=== PATIENT | male | born 1990 | race Caucasian/White ===

== ENCOUNTER 2023-09-21 13:27 | Outpatient (AMB) | payer OTHER, SELFPAY ==
[2023-09-21 13:34] VITALS: BP 126/82; PULSE 72; O2SAT 99; BMI 29.3
--- NOTE | 2023-09-21 13:34 | A.OFFPC_ITS ---
Vital Signs 09/21/23 13:34 Height 5 ft 5 in Weight 176 lb 0.8 oz BMI 29.3 BP 126/82 Blood Pressure Location Lt brachial Position Sitting Pulse 72 Pulse Source Pulse Oximeter Pulse Oximetry (%) 99 Oxygen Delivery Method Room Air Intake Visit Reasons: NPV/ requesting a phy Placement Manager Required: No Allergies No Known Allergies [No Known Allergies*] Allergy (Verified 09/21/23 13:35) Tobacco use date assessed: 09/21/23 Dental Screening Dental Screen Date: 09/21/23 Did you have a dental visit in the last 12 months?: Yes Did you have a dental problem in the last 6 months where you did not have access to dental care?: No Was dental information given to patient?: Patient has dentist HPI NPV/ requesting a phy HPI Details 32-year-old overweight male 1st time dino ng seen. Review of the notes ER visit March 2021 for left tibial fracture had ORIF left tibial plafond, tibia only with removal ex fix left ankle, sustained February 2021 from wakeboarding had laceration of the right lip and repaired. February 2021 had also penile shaft swelling after sexual intercourse advised prednisone. [facility] Surgical History (Updated 09/21/23 @ 13:51 by Bradley Hawkins MD) S/P ORIF (open reduction internal fixation) fracture Family History (Updated 09/21/23 @ 13:56 by Bradley Hawkins MD) Father Myocardial infarct Cerebral aneurysm Social History (Updated 09/21/23 @ 13:58 by Bradley Hawkins MD) Housing: Apartment Alcohol intake: current Comment: 2-3 x a week 2-3 drinks Patient Tobacco Use Status: Current someday Tobacco user Cigarettes Per Day: 5 service: No Current occupational status: unemployed Cognitive needs: No Hearing needs: No Vision needs: No Questionnaire PHQ-9 Over the last 2 weeks, how often have you been bothered by any of the following problems? 1. Little interest or pleasure in doing things: not at all 2. Feeling down, depressed, or hopeless: not at all 3. Trouble falling or staying asleep, or sleeping too much: not at all 4. Feeling tired or having little energy: not at all 5. Poor appetite or overeating: not at all 6. Feeling bad about yourself - or that you are a failure or have let yourself or your family down: not at all 7. Trouble concentrating on things, such as reading the newspaper or watching television: not at all 8. Moving or speaking so slowly that other people could have noticed. Or the opposite - being so fidgety or restless that you have been moving around a lot more than usual: not at all 9. Thoughts that you would be better off or of hurting yourself in some way: not at all Total score: 0 Depression Screening Interpretation: Negative Depression Screening Done: Yes Source: Developed by Drs. Dutch West, Mary Bullard, Sharan Do and colleagues, with an educational christine from [employer]. Thrive Questionnaire Date Thrive assessed: 09/21/23 AUDIT C Alcohol Use Questionnaire (AUDIT-C) 1. How often do you have a drink containing alcohol?: 2-3 times a week 2. How many drinks containing alcohol do you have on a typical day when you are drinking?: 3 or 4 3. How often do you have six or more drinks on one occasion?: Never Total Score: 4 PHILOMENA-7 AMB Questionnaire PHILOMENA-7 Date PHILOMENA - 7 assessed: 09/21/23 Feeling nervous, anxious, or on edge: 0 = Not at all Not being able to stop or control worryin = Several days Worrying too much about different things: 0 = Not at all Trouble relaxin = Not at all Being so restless that it is hard to sit still: 0 = Not at all Becoming easily annoyed or irritable: 0 = Not at all Feeling afraid as if something awful might happen: 0 = Not at all Total PHILOMENA-7 score (0-4 normal; 5-9 mild; 10-14 moderate; 15-21 severe): 1 Source: Developed by Drs. Dutch West, Mary Bullard, Sharan Do and colleagues, with an educational christine from [employer]. Review of Systems Const Denies poor appetite and Denies weakness Eyes Denies no additional complaints ENT Reports Normal hearing present, Denies dizziness, Denies nasal congestion, Denies tinnitus and Denies sore throat Card Denies chest pain, Denies syncope, Denies rapid heart rate and Denies dyspnea Resp Denies cough and Denies dyspnea GI Denies change in stool character, Reports constipation, Denies diarrhea, Denies nausea and Denies vomiting Denies dysuria and Denies urinary frequency Neuro Reports Normal hearing present, Denies confusion, Denies dizziness, Denies syncope and Denies weakness Psych Denies confusion Physical exam (Primary Care) Vital Signs: Last Vital Signs Pulse 72 09/21/23 13:34 BP 126/82 09/21/23 13:34 Pulse Ox 99 09/21/23 13:34 Oxygen Delivery Method Room Air 09/21/23 13:34 BMI result Body Mass Index 29.3 Tobacco/Smoking Status: Tobacco use Status Tobacco use date assessed 09/21/23 09/21/23 13:35 Patient Tobacco Use Status Current someday Tobacco 09/21/23 13:40 PHQ-9: PHQ-9 Score PHQ-9: Total score 0 09/21/23 13:40 Depression Screening Interpretation: Negative Thrive Assessment: Date of Thrive Assessment Date Thrive assessed 09/21/23 09/21/23 13:35 Const General: No confusion Orientation/consciousness: No confusion HENMT Head: Yes normocephalic Ears: external ears normal and TM's normal bilaterally Face and sinus: Yes normal facial exam Mouth: moist mucous membranes Throat: Yes tonsils normal Eyes Conjunctivae: conjunctivae normal Pupils: Equal, round and reactive pupils present and Pupil accommodation reflex normal Direct Ophthalmoscopy: normal light reflex Neck Neck: No lymphadenopathy Thyroid: Thyroid normal Chest Chest palpation & inspection: normal inspection of the chest Resp Effort & Inspection: normal respiratory effort and no audible wheezes Auscultation: clear to auscultation bilaterally, no crackles, no wheezes and lung sounds not diminished Cardio Rate: regular rate Rhythm: regular rhythm Peripheral pulses: radial pulses present and dorsalis pedis present GI Other: visual negative Palpation (GI): no masses Auscultation: normal bowel sounds and normoactive bowel sounds Rectal Exam - Male: Yes deferred Male General Exam: Yes normal external exam Skin General skin exam: no rashes or lesions noted Rashes: no rashes Neuro General: No confusion Cranial nerves: Yes Equal, round and reactive pupils present and Yes Normal hearing present Cognition (Neuro): normal cognition Gait exam (Neuro): Normal gait present Motor exam (neuro): 5/5 motor strength present throughout Deep tendon reflexes (DTR's): Right brachioradialis reflex intensity grade: 2+, Left brachioradialis reflex intensity grade: 2+, Right patellar reflex intensity grade: 2+ and Left patellar reflex intensity grade: 2+ Extrem General: No edema Assessment and Plan Assessment & Plan (1) Annual physical exam: Code(s): Z00.00 - Encounter for general adult medical examination without abnormal findings (2) Overweight (BMI 25.0-29.9): Code(s): E66.3 - Overweight Plan: Diet and exercise (3) Tobacco abuse: Code(s): Z72.0 - Tobacco use Plan: strongly advised to stop smoking!!! Coding Level of Care Code New Pt Prev Care 18-39yr([id number] Diagnoses Annual physical exam Z00.00 Overweight (BMI 25.0-29.9) E66.3 Tobacco abuse Z72.0
== END 2023-09-21 14:12 | disposition home or self-care (01) ==
PROVIDERS: PCP Internal Medicine; Visit Provider Internal Medicine
DX: Z00.00 Encounter for general adult medical examination without abnormal findings (principal); E66.3 Overweight; Z72.0 Tobacco use
CPT/HCPCS: 99385

== ENCOUNTER 2024-09-26 15:03 | Outpatient (AMB) | payer OTHER, SELFPAY ==
--- NOTE | 2024-09-26 15:15 | A.OFFPC_ITS ---
Vital Signs 09/26/24 15:17 Height 5 ft 5 in Weight 175 lb 2 oz BMI 29.1 BP 120/80 Blood Pressure Location Lt brachial Position Sitting Pulse 70 Pulse Source Pulse Oximeter Temp 97.5 F Temp Source Skin Pulse Oximetry (%) 98 Oxygen Delivery Method Room Air Intake Visit Reasons: annual exam Intake Note: Patient is here today for a physical. Pt decline flu shot today. Patch Press Operator Required: No Warble Saw Operator: Not Required per policy Accompanied by: Self / Same As Patient Allergies No Known Allergies [No Known Allergies*] Allergy (Verified 09/26/24 15:55) Medication List - Last Reconciled 09/26/24 by Celine Krishnamurthy PA-C No Known Home Meds Tobacco use date assessed: 09/26/24 Dental Screening Dental Screen Date: 09/26/24 Did you have a dental visit in the last 12 months?: Yes Did you have a dental problem in the last 6 months where you did not have access to dental care?: No Was dental information given to patient?: Patient has dentist HPI annual exam HPI Details 33-year-old male with past medical histo ry of herpes simplex virus, obesity, tobacco abuse last seen by Dr. Hawkins 08/2023 coming in for annual exam. Tells us today he has been struggling with anxiety and depression counselor and was treated in the past for this concern. He has not tried medication in with some time and is interested in medical management of his anxiety at this time. He also mentions he has a rash on his face that is worse with cold weather and uses lotion on his face with no relief. He has seen Dermatology in the past for this concern and no diagnosis was made [facility] Surgical History S/P ORIF (open reduction internal fixation) fracture Family History Father Myocardial infarct Cerebral aneurysm Social History Housing: Apartment Alcohol intake: current Comment: 2-3 x a week 2-3 drinks Patient Tobacco Use Status: Current someday Tobacco user Tobacco use type: Cigar Cigarettes Per Day: 5 e-Cigarette/Vaping Use: Never Used Second Hand Smoke Exposure: Yes service: No Current occupational status: employed Cognitive needs: No Hearing needs: No Vision needs: No Questionnaire PHQ-9 Over the last 2 weeks, how often have you been bothered by any of the following problems? 1. Little interest or pleasure in doing things: several days 2. Feeling down, depressed, or hopeless: several days 3. Trouble falling or staying asleep, or sleeping too much: several days 4. Feeling tired or having little energy: several days 5. Poor appetite or overeating: several days 6. Feeling bad about yourself - or that you are a failure or have let yourself or your family down: several days 7. Trouble concentrating on things, such as reading the newspaper or watching television: several days 8. Moving or speaking so slowly that other people could have noticed. Or the opposite - being so fidgety or restless that you have been moving around a lot more than usual: several days 9. Thoughts that you would be better off or of hurting yourself in some way: several days Total score: 9 Depression Screening Interpretation: Positive Depression Screening Follow-up: Existing condition and New Medication prescribed Depression Screening Done: Yes Source: Developed by Drs. Dutch West, Mary Bullard, Sharan Do and colleagues, with an educational christine from [employer]. Thrive Questionnaire Date Thrive assessed: 09/26/24 I am a: Patient What is your living situation today?: I have a steady place to live Within the past 12 months, did the food you bought not last and you didn't have the money to get more?: Sometimes True Within the past 12 months, did you worry whether your food would run out before you got money to buy more?: Sometimes True Do you have trouble paying for medicines?: No Do you have trouble getting transportation to medical appointments?: No Do you have trouble paying your heating and electricity bill?: No Do you have trouble taking care of your child, family member or friend?: No Do you have trouble with day-to-day activities such as bathing, preparing meals, shopping, managing finances, etc.?: No Are you currently unemployed and looking for a job?: No Are you interested in more education?: No Please select the resources that you would like help with: None Currently or been in a relationship where the following occur: I choose not to answer THRIVE Score: 2 AUDIT C Alcohol Use Questionnaire (AUDIT-C) 1. How often do you have a drink containing alcohol?: 2-3 times a week 2. How many drinks containing alcohol do you have on a typical day when you are drinking?: 3 or 4 3. How often do you have six or more drinks on one occasion?: Less than monthly Total Score: 5 PHILOMENA-7 AMB Questionnaire PHILOMENA-7 Date PHILOMENA - 7 assessed: 09/26/24 Feeling nervous, anxious, or on edge: 2 = More than half the days Not being able to stop or control worryin = Not at all Worrying too much about different things: 0 = Not at all Trouble relaxin = Several days Being so restless that it is hard to sit still: 1 = Several days Becoming easily annoyed or irritable: 1 = Several days Feeling afraid as if something awful might happen: 1 = Several days Total PHILOMENA-7 score (0-4 normal; 5-9 mild; 10-14 moderate; 15-21 severe): 6 Source: Developed by Drs. Dutch West, Mary Bullard, Sharan Do and colleagues, with an educational christine from [employer]. PHILOMENA-7 Assessment Billing PHILOMENA-7 Assessment Tool: PHILOMENA-7 Assessment 96701 Review of Systems Const Denies body aches, Denies fatigue, Denies fever(s), Denies frequent falls, Denies headache(s) and Denies weakness Eyes Reports no additional complaints and Denies change in vision ENT Denies dysphagia, Denies dizziness, Denies facial pain, Denies headache(s), Denies nasal congestion and Denies odynophagia Card Denies chest pain, Denies syncope, Denies irregular heart rhythm, Denies leg edema, Denies lightheadedness and Denies dyspnea Resp Denies cough and Denies dyspnea GI Denies constipation, Denies dysphagia, Denies dyspepsia, Denies diarrhea, Denies nausea, Denies odynophagia and Denies vomiting Denies dysuria, Denies urinary frequency, Denies urinary hesitancy and Denies urinary urgency Musc Reports back pain and Denies myalgias Skin/Breast Reports system reviewed and no additional complaints, except as documented Neuro Denies dizziness, Denies syncope, Denies frequent falls, Denies headache(s) and Denies weakness Psych Reports no additional complaints Endo Denies fatigue Physical exam (Primary Care) Vital Signs: Last Vital Signs Temp 97.5 F 09/26/24 15:17 Pulse 70 09/26/24 15:17 BP 120/80 09/26/24 15:17 Pulse Ox 98 09/26/24 15:17 Oxygen Delivery Method Room Air 09/26/24 15:17 BMI result Body Mass Index 29.1 Tobacco/Smoking Status: Tobacco use Status Tobacco use date assessed 09/26/24 09/26/24 15:22 Patient Tobacco Use Status Current someday Tobacco 09/26/24 15:22 Tobacco use type Cigar 09/26/24 15:22 e-Cigarette/Vaping Use Never Used 09/26/24 15:22 PHQ-9: PHQ-9 Score PHQ-9: Total score 9 09/26/24 15:57 Depression Screening Interpretation: Positive Depression Screening Follow-up: Existing condition and New Medication prescribed Thrive Assessment: Date of Thrive Assessment Date Thrive assessed 09/26/24 09/26/24 15:22 Currently or been in a relationship where the following occur: I choose not to answer Const General: cooperative, healthy appearing, comfortable and no acute distress Orientation/consciousness: patient oriented x3 HENMT Other: Dry, flaky rash on bilateral cheeks and ears Head: Yes normocephalic Ears: hearing grossly normal bilaterally, external ears normal, TM's normal bilaterally and EAC's normal General nose exam: Normal external nose present Face and sinus: Yes normal facial exam and Yes sinuses nontender Mouth: Normal oral and palatal mucosa present and tongue normal Throat: Yes posterior oropharynx normal Eyes General: appearance normal, both eyes and all related structures Conjunctivae: conjunctivae normal Pupils: Equal, round and reactive pupils present EOM: EOMs intact bilaterally and No Nystagmus present Neck Neck: Yes normal visual inspection, Yes full ROM and Yes no lymphadenopathy Chest Chest palpation & inspection: normal inspection of the chest Resp Effort & Inspection: normal respiratory effort Auscultation: clear to auscultation bilaterally, no crackles, no rales, no rhonchi, no wheezes and breath sounds present Cardio Rate: regular rate Rhythm: regular rhythm Peripheral pulses: radial pulses present and dorsalis pedis present GI Inspection: Yes normal to inspection and No Abdominal wall edema Palpation (GI): Soft to palpation, not firm and nontender Auscultation: normal bowel sounds Rectal Exam - Male: Yes deferred General: Yes no CVA tenderness Back/Spine/Pelvis Back: no CVA tenderness Skin General skin exam: no rashes or lesions noted Neuro General: patient oriented x3 Cranial nerves: Yes Equal, round and reactive pupils present, Yes Midline tongue present, Yes Ability to bilaterally elevate shoulders present and No Nystagmus present Gait exam (Neuro): Normal gait present Extrem General: Yes normal to inspection, Yes full ROM, No no pedal edema and No edema Psych Speech and movement: Normal speech and movement present Affect: normal affect Insight: Good insight present (Psych) Judgement: Good judgement present (Psych) Coding Level of Care Code Est Pt Prev Care 18-39y(63985) Diagnoses Tobacco abuse Z72.0 Overweight (BMI 25.0-29.9) E66.3 Annual physical exam Z00.00 Herpes simplex B00.9 Anxiety F41.9 Depression F32.A Dermatitis L30.9 Additional Codes PHILOMENA-7 Assessment Billing - PHILOMENA-7 Assessment Tool: PHILOMENA-7 Assessment [id number] ([id number]) Assessment & Plan Assessment & Plan (1) Tobacco abuse: Code(s): Z72.0 - Tobacco use Category: Medical Plan: Smoking cigarettes and the use of tobacco can be harmful. We discussed the importance of stopping and options to aid in smoking cessation. Nicotine replacement therapy declined today (2) Overweight (BMI 25.0-29.9): Code(s): E66.3 - Overweight Category: Medical Plan: Healthy diet and regular exercise is encouraged. (3) Annual physical exam: Code(s): Z00.00 - Encounter for general adult medical examination without abnormal findings Category: Medical Plan: Patient is up-to-date on all recommended routine screenings and vaccinations for his age. Flu shot was declined today. Ordered for updated blood work. Healthy diet and regular exercise is encouraged. (4) Herpes simplex: Code(s): B00.9 - Herpesviral infection, unspecified Category: Medical Plan: Has not had any breakouts. Continue to monitor (5) Anxiety: Code(s): F41.9 - Anxiety disorder, unspecified Category: Medical Plan: Patient complaining of worsening anxiety and depression we will start on sertraline 25 mg and follow up in 3 months. Declining counseling referral at this time. Discussed side effects of this medication patient understands and will agree to reach out if symptoms worsen or persist. Denies any thoughts of self-harm (6) Depression: Code(s): F32.A - Depression, unspecified Category: Medical Plan: Patient complaining of worsening anxiety and depression we will start on sertraline 25 mg and follow up in 3 months. Declining counseling referral at this time. Discussed side effects of this medication patient understands and will agree to reach out if symptoms worsen or persist. Denies any thoughts of self-harm (7) Dermatitis: Code(s): L30.9 - Dermatitis, unspecified Category: Medical Plan: Patient having dry flaky skin on the face and ears. Declining dermatology referral states he has had this worked up in the past and no diagnosis was made and no treatment was given. Advised to use topical emollients such as Aquaphor or Eucerin nightly for symptom management Plan This note was constructed using voice recognition software. While every effort has been made to ensure accuracy and cellulose insulation helper, still areas may have been included sometimes these areas may affect the content or meeting of the given symptoms. Total time spent caring for the patient today was thirty minutes. This includes time spent before the visit reviewing the chart, time spent during the visit, and time spent after the visit and documentation. Orders: Orders Complete Blood Count Auto Diff Today Z00.00 - Encounter for general adult medical examination without abnormal findings Lipid Panel Today E66.3 - Overweight TSH reflex Free T4 Today Z00.00 - Encounter for general adult medical examination without abnormal findings Vitamin D 25-OH Total Today Z00.00 - Encounter for general adult medical examination without abnormal findings Comprehensive Met. Panel Today Z00.00 - Encounter for general adult medical examination without abnormal findings Vitamin B12 and Folate Today Z00.00 - Encounter for general adult medical examination without abnormal findings Medications: New sertraline 25 mg PO DAILY 30 tabs 3RF
[2024-09-26 15:17] VITALS: BP 120/80; PULSE 70; TEMP 36.4; O2SAT 98; BMI 29.1
== END 2024-09-26 16:13 | disposition home or self-care (01) ==
PROVIDERS: PCP Internal Medicine
DX: Z72.0 Tobacco use (principal); E66.3 Overweight; Z00.00 Encounter for general adult medical examination without abnormal findings; B00.9 Herpesviral infection, unspecified; F41.9 Anxiety disorder, unspecified; F32.A Depression, unspecified; L30.9 Dermatitis, unspecified

== ENCOUNTER → 2024-09-26 15:03 | Outpatient (BNVA) | payer OTHER, SELFPAY | PROVIDERS: PCP Internal Medicine | DX: Z00.00 Encounter for general adult medical examination without abnormal findings (principal); E66.3 Overweight; Z68.29 Body mass index [BMI] 29.0-29.9, adult; B00.9 Herpesviral infection, unspecified; F41.9 Anxiety disorder, unspecified; F32.A Depression, unspecified; L30.9 Dermatitis, unspecified; Z72.0 Tobacco use | CPT/HCPCS: 96127 ==

== ENCOUNTER 2024-10-08 08:20 | Outpatient (REF) | payer OTHER, SELFPAY ==
[2024-10-08 08:31] LABS: MANUAL DIFF FLAG NO
[2024-10-08 09:30] LABS: Basophils Absolute Auto 0.1 X10*3/uL (0.0-0.2); Basophils Percent Auto 0.9 % (0-2); Eosinophils Absolute Auto 0.3 X10*3/uL (0.0-0.4); Eosinophils Percent Auto 5.9 % (0-4); Hematocrit 43.9 % (42.0-52.0); Hemoglobin 15.3 g/dl (14.0-18.0); Imm Gran Abs Auto 0.03 X10*3/uL (0.00-0.03); Imm Gran Pct Auto 0.6 % (0.0-0.4); Lymphocytes Absolute Auto 1.9 X10*3/uL (1.2-4.9); Lymphocytes Percent Auto 34.4 % (20-40); Mean Corpuscular HGB Conc 34.9 g/dl (31.0-36.0); Mean Platelet Volume 9.2 fL (9.4-12.4); Monocytes Absolute Auto 0.6 X10*3/uL (0.1-1.2); Monocytes Percent Auto 10.6 % (2-11); Neutrophils Absolute Auto 2.6 x10*3/uL (2.0-8.3); Neutrophils Percent Auto 47.6 % (45-73); Platelet Count 283 X10*3/uL (160-400); Red Blood Count 4.93 X10*6/uL (4.60-5.80); Red Cell Distribution Width 13.2 % (11.0-16.0); White Blood Count 5.4 X10*3/uL (4.8-10.8)
[2024-10-08 10:09] LABS: Alanine Aminotransferase 38 U/L (0-40); Albumin Level 4.4 g/dL (3.5-5.0); Alkaline Phosphatase 74 U/L (39-117); Anion Gap 11 (12-20); Aspartate Amino Transferase 38 U/L (5-37); Bilirubin Total 0.9 mg/dL (0.0-1.0); Blood Urea Nitrogen 17 mg/dL (9-16); Carbon Dioxide 28 mmol/L (22-29); Chloride 106 mmol/L (96-108); Cholesterol 190 mg/dL (<200); Estimated Glomerular Filt Rate > 60; Glucose Random 96 mg/dL (60-115); HDL Cholesterol 70 mg/dL (>40); LDL Cholesterol Calculated 111 mg/dL (<100); Potassium 4.2 mmol/L (3.3-5.1); Sodium 141 mmol/L (135-145); Total Protein 7.5 g/dL (6.5-8.0); Triglycerides 48 mg/dL (<150)
[2024-10-08 10:32] LABS: TSH reflex Free T4 1.15 uIU/mL (0.32-4.0); Vitamin D 25-OH Total 25.8 ng/mL (>30)
[2024-10-08 10:38] LABS: Vitamin B12 522 pg/mL (200-900)
== END 2024-10-08 08:21 | disposition home or self-care (01) ==
LOC: HO.LAB 08:20
PROVIDERS: PCP Internal Medicine
DX: Z00.00 Encounter for general adult medical examination without abnormal findings (principal); E66.3 Overweight
CPT/HCPCS: 36415; 80053; 80061; 82306; 82607; 82746; 84443; 85025

== ENCOUNTER 2024-12-30 15:24 | Outpatient (AMB) | payer OTHER, SELFPAY ==
[2024-12-30 15:33] VITALS: BP 114/68; PULSE 82; O2SAT 98; BMI 28.0
--- NOTE | 2024-12-30 15:33 | MHC.PC.OV ---
Vital Signs 12/30/24 15:33 Height 5 ft 5 in Weight 168 lb BMI 28.0 BP 114/68 Blood Pressure Location Lt brachial Position Sitting Pulse 82 Pulse Source Pulse Oximeter Pulse Oximetry (%) 98 Oxygen Delivery Method Room Air Intake Visit Reasons: Rash Intake Note: Also wants something to help him stop/slow down drinking., Allergies No Known Allergies [No Known Allergies*] Allergy (Verified 12/30/24 15:33) Medication List - Last Reconciled 12/30/24 by Bradley Hawkins MD cholecalciferol (vitamin D3) 25 mcg PO DAILY prednisone 4 tabs QD x 2 days then 3 tabs QD x 2 days then 2 tabs Qd x 2 days then 1 tab QD x 2 days PO daily; Tobacco use date assessed: 09/26/24 Dental Screening Dental Screen Date: 09/26/24 [facility] Surgical History S/P ORIF (open reduction internal fixation) fracture Family History Father Myocardial infarct Cerebral aneurysm Social History Housing: Apartment Alcohol intake: current Comment: 2-3 x a week 2-3 drinks Patient Tobacco Use Status: Current someday Tobacco user Tobacco use type: Cigar Cigarettes Per Day: 5 e-Cigarette/Vaping Use: Never Used Second Hand Smoke Exposure: Yes service: No Current occupational status: employed Cognitive needs: No Hearing needs: No Vision needs: No Questionnaire PHQ-9 Over the last 2 weeks, how often have you been bothered by any of the following problems? 1. Little interest or pleasure in doing things: several days 2. Feeling down, depressed, or hopeless: several days 3. Trouble falling or staying asleep, or sleeping too much: several days 4. Feeling tired or having little energy: several days 5. Poor appetite or overeating: several days 6. Feeling bad about yourself - or that you are a failure or have let yourself or your family down: several days 7. Trouble concentrating on things, such as reading the newspaper or watching television: several days 8. Moving or speaking so slowly that other people could have noticed. Or the opposite - being so fidgety or restless that you have been moving around a lot more than usual: several days 9. Thoughts that you would be better off or of hurting yourself in some way: several days Total score: 9 Depression Screening Interpretation: Positive Depression Screening Follow-up: Existing condition and New Medication prescribed Depression Screening Done: Yes Source: Developed by Drs. Dutch West, Mary Bullard, Sharan Do and colleagues, with an educational christine from [employer] Thrive Questionnaire Date Thrive assessed: 09/26/24 I am a: Patient What is your living situation today?: I have a steady place to live Within the past 12 months, did the food you bought not last and you didn't have the money to get more?: Sometimes True Within the past 12 months, did you worry whether your food would run out before you got money to buy more?: Sometimes True Do you have trouble paying for medicines?: No Do you have trouble getting transportation to medical appointments?: No Do you have trouble paying your heating and electricity bill?: No Do you have trouble taking care of your child, family member or friend?: No Do you have trouble with day-to-day activities such as bathing, preparing meals, shopping, managing finances, etc.?: No Are you currently unemployed and looking for a job?: No Are you interested in more education?: No Please select the resources that you would like help with: None Currently or been in a relationship where the following occur: I choose not to answer THRIVE Score: 2 PHILOMENA-7 AMB Questionnaire PHILOMENA-7 Date PHILOMENA - 7 assessed: 12/30/24 Feeling nervous, anxious, or on edge: 2 = More than half the days Not being able to stop or control worryin = Not at all Worrying too much about different things: 0 = Not at all Trouble relaxin = Several days Being so restless that it is hard to sit still: 1 = Several days Becoming easily annoyed or irritable: 1 = Several days Feeling afraid as if something awful might happen: 1 = Several days Total PHILOMENA-7 score (0-4 normal; 5-9 mild; 10-14 moderate; 15-21 severe): 6 Source: Developed by Wang Bondet B.W. Juan Miguel, Sharan Do and colleagues, with an educational christine from [employer] PHILOMENA-7 Assessment Billing PHILOMENA-7 Assessment Tool: PHILOMENA-7 Assessment 35545 Physical exam (Primary Care) Vital Signs: Last Vital Signs Pulse 82 12/30/24 15:33 BP 114/68 12/30/24 15:33 Pulse Ox 98 12/30/24 15:33 Oxygen Delivery Method Room Air 12/30/24 15:33 BMI result Body Mass Index 28.0 Tobacco/Smoking Status: Tobacco use Status Tobacco use date assessed 09/26/24 12/30/24 15:39 Patient Tobacco Use Status Current someday Tobacco 12/30/24 15:39 Tobacco use type Cigar 12/30/24 15:39 e-Cigarette/Vaping Use Never Used 12/30/24 15:39 PHQ-9: PHQ-9 Score PHQ-9: Total score 9 12/30/24 16:08 Depression Screening Interpretation: Positive Depression Screening Follow-up: Existing condition and New Medication prescribed Thrive Assessment: Date of Thrive Assessment Date Thrive assessed 09/26/24 12/30/24 15:39 Currently or been in a relationship where the following occur: I choose not to answer Const General: alert; No acute distress Eyes Conjunctivae: conjunctivae normal Resp Auscultation: clear to auscultation bilaterally Cardio Rate: regular rate Rhythm: regular rhythm GI Inspection: Yes normal to inspection Extrem General: Yes normal to inspection and No edema Coding Level of Care Code Est Pt Level 4 (64445) Diagnoses Overweight (BMI 25.0-29.9) E66.3 Tobacco abuse Z72.0 Generalized anxiety disorder F41.1 Vitamin D deficiency E55.9 Alcohol abuse F10.10 Photosensitive atopic dermatitis L20.89 Additional Codes PHILOMENA-7 Assessment Billing - PHILOMENA-7 Assessment Tool: PHILOMENA-7 Assessment 88164 ([id number]) Assessment & Plan Assessment & Plan (1) Overweight (BMI 25.0-29.9): Code(s): E66.3 - Overweight Category: Medical Plan: Diet and exercise (2) Tobacco abuse: Code(s): Z72.0 - Tobacco use Category: Medical Plan: Patient is strongly advised to stop (3) Generalized anxiety disorder: Code(s): F41.1 - Generalized anxiety disorder Category: Medical Plan: Stable (4) Vitamin D deficiency: Code(s): E55.9 - Vitamin D deficiency, unspecified Category: Medical Plan: Vitamin-D 9256-9029 units once a day (5) Alcohol abuse: Code(s): F10.10 - Alcohol abuse, uncomplicated Category: Social Hx (6) Photosensitive atopic dermatitis: Code(s): L20.89 - Other atopic dermatitis Category: Medical Plan History of Present Illness The patient is a 34-year-old male presenting with a persistent facial rash. The rash has been present for several years and is described as pustular in nature, primarily affecting the forehead. Previous dermatological assessments, including a biopsy, did not reveal significant pathology. Sunscreen has been used daily as both a preventative and palliative measure, but the rash persists, especially in sunlight exposure scenarios. The patient has a significant history of smoking, with recent attempts to quit. He has refrained from smoking in the previous days and aims for complete cessation, though he recognizes its difficulty. The patient consumes alcohol and seeks guidance on reducing intake, preferring to try non-pharmacologic methods but remains open to future referrals. Routine screening identified a slightly elevated liver function profile and a low vitamin D level, necessitating dietary adjustments and supplementation. Health Maintenance - Advised smoking cessation. - Discussed alcohol use reduction. - Recommended vitamin D supplementation (e.g., Vitamin D 1000 to 2000 units daily). - Discussed sun protection measures to prevent skin damage. Social History - Recently reduced smoking; has not smoked in the past few days. - Consumes alcohol; desires to reduce intake independently. - Concerned about skin health due to sun exposure. Review of Systems - Skin: Reports persistent rash on the forehead with pustules. - Psychiatry: Reports generalized anxiety disorder. - Respiratory: Reports cough. - Gastrointestinal: Denies changes in appetite or bowel habits. - Musculoskeletal: Denies joint pain or swelling. Physical Exam - Skincare- Notable rash on the forehead with pustules. Results - Labs: History of mild elevation in liver function tests, low vitamin D levels. Plan The facial rash will be managed with a tapered prednisone course to reduce inflammation, complemented by ongoing use of sunscreen. Vitamin D supplementation is continued due to previously noted deficiency. Smoking cessation is encouraged through abstinence, with reassurance of support for pharmacological cessation aids if necessary. Alcohol use reduction will be approached non-pharmacologically, with a referral option. Liver function monitoring is advised given past mild elevation, along with continued use of sun protection to prevent skin damage. Patient was informed and verbally consented to the use of an ambient scribe for clinic note documentation during this visit. Discussion Notes During the visit, I discussed the management of the patient's persistent facial rash, recommending a short course of oral prednisone to manage inflammation effectively. I underscored the importance of ongoing sunscreen application and recommended vitamin D supplementation to address deficiency. I explored the patient's interest in smoking cessation, highlighting benefits and support mechanisms, and encouraged the patient's intention to quit. Additionally, we covered alcohol use reduction strategies, with the possibility of referrals and medications if self-management proves inadequate. Patient Instructions - Apply sunscreen daily to protect the skin from sun damage. - Begin with a tapered course of oral prednisone as prescribed. - Take Vitamin D supplements as prescribed. - Continue efforts towards smoking cessation; reach out if further assistance is required. - Reduce alcohol consumption; seek support if needed. - Return for follow-up should symptoms persist or worsen. - Follow up on liver function tests as advised. Medications: New prednisone 4 tabs QD x 2 days then 3 tabs QD x 2 days then 2 tabs Qd x 2 days then 1 tab QD x 2 days PO daily; 20 tabs 0RF J45.909 - Unspecified asthma, uncomplicated, L20.89 - Other atopic dermatitis Refilled cholecalciferol (vitamin D3) 25 mcg PO DAILY 90 caps 3RF L20.89 - Other atopic dermatitis
--- OUTSIDE RECORDS SUMMARY | 2024-12-30 16:35 | XMS_ITS | Clinical Summary ---
Author Organization [facility] Address [address] [place], [place] [id number] Phone Care Team Providers Care Smoke Eater Name Role Phone Pcp, Unknown Primary Care Provider Unavailabl e Social History Tobacco Use Types Packs/Day Years Used Date Smoking Tobacco: Never Assessed Sex and Gender Information Value Date Recorded Sex Assigned at Not on file Gender Identity Not on file Sexual Orientation Not on file Plan of Treatment Health Maintenance Due Date Last Done Comments LIPID PANEL 1989 DEPRESSION SCREENING 2001 HEPATITIS C SCREENING 10/31/2007 HIV ONE-TIME SCREENING (18-6 5 YEARS) 10/31/2007 INFLUENZA VACCINE (#1) 2024 COVID-19 VACCINE (2023-2 5 season) 2024 08/01/2021, 01/05/2021 Adult Td,Tdap Booster 05/09/2030 05/09/2020 HEPATITIS A VACCINES Aged Out No long er eligible based on patient's age to complete this topic HIB VACCINES Aged Out No longer eligi ble based on patient's age to complete this topic MENINGOCOCCAL VACCINES (ACWY) Aged Out No longer eligible based on patient's age to complete this topic PNEUMOCOCCAL VACCINES (0-49 years) Aged Out No longer eligible b ased on patient's age to complete this topic Medical Devices Not on file Care Teams Smoke Eater Relationship Specialty Start Date End Date Pcp, Unknown PCP - General 11/22/22 Additional Source Comments The information contained in this document represents components of the legal health record. It is not the complete legal health record.[facility]
== END 2024-12-30 16:24 | disposition home or self-care (01) ==
LOC: HO.HMCH 15:25
PROVIDERS: PCP Internal Medicine; Visit Provider Internal Medicine
DX: E66.3 Overweight (principal); Z72.0 Tobacco use; F41.1 Generalized anxiety disorder; E55.9 Vitamin D deficiency, unspecified; F10.10 Alcohol abuse, uncomplicated; L20.89 Other atopic dermatitis

== ENCOUNTER → 2024-12-30 15:24 | Outpatient (BNVA) | payer OTHER, SELFPAY | PROVIDERS: PCP Internal Medicine; Visit Provider Internal Medicine | DX: L20.89 Other atopic dermatitis (principal); F41.1 Generalized anxiety disorder; E55.9 Vitamin D deficiency, unspecified; F10.10 Alcohol abuse, uncomplicated; E66.3 Overweight; Z68.28 Body mass index [BMI] 28.0-28.9, adult; Z72.0 Tobacco use | CPT/HCPCS: 96127 ==

== ENCOUNTER 2025-06-22 12:37 | Outpatient (AMB) | payer BC, OTHER, SELFPAY ==
[2025-06-22 12:41] VITALS: BP 138/92; PULSE 86; TEMP 36.4; O2SAT 99; BMI 27.8
--- NOTE | 2025-06-22 12:41 | A.OFFPC_ITS ---
Vital Signs 06/22/25 12:41 Height 5 ft 5 in Weight 167 lb 6 oz BMI 27.8 BP 138/92 H Blood Pressure Location Lt brachial Position Sitting Pulse 86 Pulse Source Pulse Oximeter Temp 97.5 F Temp Source Temporal Artery Scan Pulse Oximetry (%) 99 Oxygen Delivery Method Room Air Intake Visit Reasons: Med refill/anxiety Allergies No Known Allergies (No Known Allergies*) Allergy (Verified 06/22/25 12:44) Medication List - Last Reconciled 06/22/25 by Bradley Hawkins MD cariprazine (Vraylar) 1.5 mg PO DAILY cholecalciferol (vitamin D3) 25 mcg PO DAILY Tobacco use date assessed: 06/22/25 Dental Screening Dental Screen Date: 06/22/25 Did you have a dental visit in the last 12 months?: Yes Did you have a dental problem in the last 6 months where you did not have access to dental care?: No Was dental information given to patient?: Patient has dentist [facility] Medical History (Updated 06/22/25 @ 13:21 by Bradley Hawkins MD) Depression Anxiety Surgical History S/P ORIF (open reduction internal fixation) fracture Family History Father Myocardial infarct Cerebral aneurysm Social History Housing: Apartment Alcohol intake: current Comment: 2-3 x a week 2-3 drinks Patient Tobacco Use Status: Former Tobacco user Tobacco use type: Cigar Cigarettes Per Day: 5 e-Cigarette/Vaping Use: Never Used Second Hand Smoke Exposure: Yes service: No Current occupational status: employed Cognitive needs: No Hearing needs: No Vision needs: No Questionnaire PHQ-9 Over the last 2 weeks, how often have you been bothered by any of the following problems? 1. Little interest or pleasure in doing things: nearly every day 2. Feeling down, depressed, or hopeless: nearly every day 3. Trouble falling or staying asleep, or sleeping too much: more than half the days 4. Feeling tired or having little energy: more than half the days 5. Poor appetite or overeating: more than half the days 6. Feeling bad about yourself - or that you are a failure or have let yourself or your family down: nearly every day 7. Trouble concentrating on things, such as reading the newspaper or watching television: nearly every day 8. Moving or speaking so slowly that other people could have noticed. Or the opposite - being so fidgety or restless that you have been moving around a lot more than usual: several days 9. Thoughts that you would be better off or of hurting yourself in some way: not at all Total score: 19 Depression Screening Interpretation: Positive Depression Screening Follow-up: Existing condition and New Medication prescribed Depression Screening Done: Yes 54857 - PHQ-9 Billing: Yes Source: Developed by Drs. Dutch West, Mary Bullard, Sharan Do and colleagues, with an educational christine from [employer]. Thrive Questionnaire Date Thrive assessed: 09/26/24 I am a: Patient What is your living situation today?: I have a steady place to live Within the past 12 months, did the food you bought not last and you didn't have the money to get more?: Sometimes True Within the past 12 months, did you worry whether your food would run out before you got money to buy more?: Sometimes True Do you have trouble paying for medicines?: No Do you have trouble getting transportation to medical appointments?: No Do you have trouble paying your heating and electricity bill?: No Do you have trouble taking care of your child, family member or friend?: No Do you have trouble with day-to-day activities such as bathing, preparing meals, shopping, managing finances, etc.?: No Are you currently unemployed and looking for a job?: No Are you interested in more education?: No Please select the resources that you would like help with: None Currently or been in a relationship where the following occur: I choose not to answer THRIVE Score: 2 AUDIT C Alcohol Use Questionnaire (AUDIT-C) 1. How often do you have a drink containing alcohol?: 2-3 times a week 2. How many drinks containing alcohol do you have on a typical day when you are drinking?: 3 or 4 3. How often do you have six or more drinks on one occasion?: Never Total Score: 4 PHILOMENA-7 AMB Questionnaire PHILOMENA-7 Date PHILOMENA - 7 assessed: 12/30/24 Feeling nervous, anxious, or on edge: 2 = More than half the days Not being able to stop or control worryin = Nearly every day Worrying too much about different things: 3 = Nearly every day Trouble relaxin = Nearly every day Being so restless that it is hard to sit still: 1 = Several days Becoming easily annoyed or irritable: 3 = Nearly every day Feeling afraid as if something awful might happen: 1 = Several days Total PHILOMENA-7 score (0-4 normal; 5-9 mild; 10-14 moderate; 15-21 severe): 16 Source: Developed by Drs. Dutch West, Mary Bullard, Sharan Do and colleagues, with an educational christine from [employer]. PHILOMENA-7 Assessment Billing PHILOMENA-7 Assessment Tool: PHILOMENA-7 Assessment 97176 Physical exam (Primary Care) Vital Signs: Last Vital Signs Temp 97.5 F 06/22/25 12:41 Pulse 86 06/22/25 12:41 BP 138/92 H 06/22/25 12:41 Pulse Ox 99 06/22/25 12:41 Oxygen Delivery Method Room Air 06/22/25 12:41 BMI result Body Mass Index 27.8 Tobacco/Smoking Status: Tobacco use Status Tobacco use date assessed 06/22/25 06/22/25 12:47 Patient Tobacco Use Status Former Tobacco user 06/22/25 12:47 Tobacco use type Cigar 06/22/25 12:47 e-Cigarette/Vaping Use Never Used 06/22/25 12:47 PHQ-9: PHQ-9 Score PHQ-9: Total score 19 06/22/25 12:47 Depression Screening Interpretation: Positive Depression Screening Follow-up: Existing condition and New Medication prescribed Thrive Assessment: Date of Thrive Assessment Date Thrive assessed 09/26/24 06/22/25 12:47 Currently or been in a relationship where the following occur: I choose not to answer Const General: alert; No acute distress Eyes Conjunctivae: conjunctivae normal Resp Auscultation: clear to auscultation bilaterally Cardio Rate: regular rate Rhythm: regular rhythm GI Inspection: Yes normal to inspection Extrem General: Yes normal to inspection and No edema Coding Level of Care Code Est Pt Level 4 (03038) Diagnoses Overweight (BMI 25.0-29.9) E66.3 Generalized anxiety disorder F41.1 Tobacco abuse Z72.0 Additional Codes PHILOMENA-7 Assessment Billing - PHILOMENA-7 Assessment Tool: PHILOMENA-7 Assessment 85379 ([id number]) PHQ-9 - 43556 - PHQ-9 Billing: Yes ([id number]) Assessment & Plan Assessment & Plan (1) Overweight (BMI 25.0-29.9): Code(s): E66.3 - Overweight Category: Medical Plan: diet and exercise (2) Generalized anxiety disorder: Code(s): F41.1 - Generalized anxiety disorder Category: Medical Plan: will start with med and referral (3) Tobacco abuse: Comment: quit cigaretteds but does cigar Code(s): Z72.0 - Tobacco use Category: Medical Plan: did stop cigarettes but does cigar now Plan History of Present Illness The patient is a 34-year-old male presenting for follow-up for worsening mental health symptoms. He has a history of generalized anxiety disorder, depression, a nd alcohol abuse. For the past week, the patient has experienced increased anxiety and depression, which has affected his ability to concentrate at work. He is concerned about relapsing and wants to manage his symptoms before they worsen. He has a history of treatment with Vraylar, prescribed by his former provider, Delaney Ruiz, which was effective. He reports previously feeling like he was hearing things but does not believe that was the case. His last blood work in September was normal for blood count, electrolytes, renal function, blood sugar, liver function, and cholesterol, but showed low vitamin D. The patient has a history of smoking and quit cigarettes about three to four months ago, though he occasionally smokes a cigar. Health Maintenance An influenza vaccine was offered, but the patient declined, stating he has never had one. The patient was counseled on the importance of the flu shot to prevent transmission to others, such as his parents. Social History - Substance Use: The patient has a history of alcohol abuse. - Tobacco Use: He quit smoking cigarettes three to four months ago but reports having a few puffs from a cigar for urges. - Employment: The patient is employed, but his mental health symptoms are currently interfering with his ability to concentrate at work. Review of Systems - Psychiatric: Reports increased anxiety and depression. - Neurological: Reports difficulty concentrating. Physical Exam Results - Labs from September: Normal blood count, electrolytes, renal function, blood sugar, liver function, and cholesterol. - Vitamin D: Low. Plan Patient was informed and verbally consented to the use of an ambient scribe for clinic note documentation during this visit. 1. Depression And Anxiety The patient presents with a recurrence of anxiety and depression, which is impacting his work. He has a history of successful treatment with Vraylar (cariprazine). Plan to restart Vraylar at a low dose of 1.5 mg once daily to reintroduce the medication. The dose will be re-evaluated and potentially increased after a couple of weeks. A referral will be placed for the patient to see a psychiatric nurse practitioner for further medication management. 2. Tobacco Use The patient reports quitting cigarettes three to four months ago but occasionally uses a cigar to manage cravings. Patient was counseled on continued smoking cessation. Discussion Notes I discussed the patient's recurrence of anxiety and depression, acknowledging the impact on his work and his desire to prevent a full relapse. We reviewed his prior positive experience with Vraylar, and I recommended restarting it at a low dose of 1.5 mg daily, explaining that we could increase the dose later if needed. I explained that a public relations specialist would be better equipped to manage these medications, and I will therefore make a referral to a psychiatric nurse practitioner for expert management. We also discussed his progress with smoking cessation and offered the influenza vaccine, which he declined after a brief discussion about its benefits in preventing transmission. Patient Instructions - Start taking Vraylar 1.5 mg by mouth once a day. - We can increase the dose in a couple of weeks if needed, so please let me know how you are feeling. - Our office will send a referral for you to see a psychiatric nurse specialist who can help manage your medications. You can expect a call to schedule that appointment. - Continue your great work on quitting smoking. - Please be careful about spreading the flu, especially to your family. Orders: Referrals Psychiatry Outpatient Consultation Service F41.1 - Generalized anxiety disorder Medications: New cariprazine (Vraylar) 1.5 mg PO DAILY 30 caps 1RF F41.1 - Generalized anxiety disorder
--- OUTSIDE RECORDS SUMMARY | 2025-06-22 16:03 | XMS_ITS | Clinical Summary ---
Author Organization [facility] Address [address] [place] [id number] Phone Care Team Providers Care Engine House Helper Name Role Phone Pcp, Unknown Primary Care Provider Unavailabl e Social History Tobacco Use Types Packs/Day Years Used Date Smoking Tobacco: Never Assessed Sex and Gender Information Value Date Recorded Sex Assigned at Not on file Legal Sex Male 9:04 PM EDT Gender Identity Not on file Sexual Orientation Not on file Plan of Treatment Health Maintenance Due Date Last Done Comments LIPID PANEL 1989 DEPRESSION SCREENING 2001 HEPATITIS C SCREENING 10/31/2007 HIV ONE-TIME SCREENING (18-6 5 YEARS) 10/31/2007 INFLUENZA VACCINE (#1) 2025 COVID-19 VACCINE (2024-2 6 season) 2025 08/01/2021, 01/05/2021 Adult Td,Tdap Booster 05/09/2030 05/09/2020 HEPATITIS A VACCINES Aged Out No long er eligible based on patient's age to complete this topic HIB VACCINES Aged Out No longer eligi ble based on patient's age to complete this topic MENINGOCOCCAL VACCINES (ACWY) Aged Out No longer eligible based on patient's age to complete this topic MENINGOCOCCAL VACCINES (B) Aged Out N o longer eligible based on patient's age to complete this topic PNEUMOCOCCAL VACCINES (0-49 years) Aged Out No longer eligible b ased on patient's age to complete this topic Medical Devices Not on file Insurance [place] [employer] AND [employer]D [facility] [place] [id number] Care Teams Engine House Helper Relationship Specialty Start Date End Date Pcp, Unknown PCP - General 11/22/22 Additional Source Comments The information contained in this document represents components of the legal health record. It is not the complete legal health record.[facility]
== END 2025-06-22 13:24 | disposition home or self-care (01) ==
LOC: HO.HMCH 12:39
PROVIDERS: PCP Internal Medicine; Visit Provider Internal Medicine
DX: E66.3 Overweight (principal); F41.1 Generalized anxiety disorder; Z72.0 Tobacco use

== ENCOUNTER → 2025-06-22 12:37 | Outpatient (BNVA) | payer BC, SELFPAY | PROVIDERS: PCP Internal Medicine; Visit Provider Internal Medicine | DX: E66.3 Overweight (principal); F41.1 Generalized anxiety disorder; F32.A Depression, unspecified; F17.290 Nicotine dependence, other tobacco product, uncomplicated; Z68.27 Body mass index [BMI] 27.0-27.9, adult | CPT/HCPCS: 96127 ==

== ENCOUNTER 2025-08-07 15:34 | Outpatient (AMB) | payer BC, SELFPAY ==
--- NOTE | 2025-08-07 16:04 | A.OFFPC_ITS ---
Vital Signs 08/07/25 16:05 Height 5 ft 5 in Weight 171 lb 2 oz BMI 28.5 BP 140/90 H Blood Pressure Location Lt brachial Position Sitting Pulse 93 Pulse Source Pulse Oximeter Temp 97.5 F Temp Source Temporal Artery Scan Pulse Oximetry (%) 98 Oxygen Delivery Method Room Air Intake Visit Reasons: atopic dermatitis, alcohol abuse, tobacco abuse Intake Note: Patient is here to follow up on Atopic dermatitis, Alcohol abuse, tobacco use. Space Control Agent Required: No Master Control Engineer: Not Required per policy Accompanied by: Self / Same As Patient Allergies No Known Allergies (No Known Allergies*) Allergy (Verified 08/07/25 16:05) Medication List - Last Reconciled 08/07/25 by Teresa Mcmillan MD cariprazine (Vraylar) 1.5 mg PO DAILY cholecalciferol (vitamin D3) 25 mcg PO DAILY Tobacco use date assessed: 08/07/25 Dental Screening Dental Screen Date: 06/22/25 HPI HPI Comments History of Present Illness Details Patient is a 34-year-old male presenting for follow up for anxiety and depression. Patient was last seen on 06/22/2025 for worsening anxiety and depression symptoms. He was restarted on Vraylar 1.5 mg once daily at that time, and referred to psychiatry for further medication management. Today, he reports that medication is helping and he has been feeling better. Reports that he needs a refill of the medication. He states he did not make an appointment with Psychiatry as he did not feel he needed it, though he does see a family therapist. He reports changes in his asleep pattern which he attributes to the medication. He reports sleeping at 19:00 and waking up between 2 or 03:00 a.m. He reports he gets 7 hours of straight sleep and wakes up refreshed, not feeling tired, but still prefers to wake up later. [facility] Medical History (Updated 06/22/25 @ 13:21 by Bradley Hawkins MD) Depression Anxiety Surgical History S/P ORIF (open reduction internal fixation) fracture Family History Father Myocardial infarct Cerebral aneurysm Social History (Updated 08/07/25 @ 16:08 by MJ Torres Housing: Apartment Alcohol intake: current Alcohol intake frequency: a few times a week Comment: 2-3 x a week 2-3 drinks Patient Tobacco Use Status: Current someday Tobacco user Tobacco use type: Cigar Cigarettes Per Day: 1 e-Cigarette/Vaping Use: Never Used Second Hand Smoke Exposure: Yes service: No Current occupational status: employed Cognitive needs: No Hearing needs: No Vision needs: No Questionnaire Thrive Questionnaire Date Thrive assessed: 09/26/24 I am a: Patient What is your living situation today?: I have a steady place to live Within the past 12 months, did the food you bought not last and you didn't have the money to get more?: Sometimes True Within the past 12 months, did you worry whether your food would run out before you got money to buy more?: Sometimes True Do you have trouble paying for medicines?: No Do you have trouble getting transportation to medical appointments?: No Do you have trouble paying your heating and electricity bill?: No Do you have trouble taking care of your child, family member or friend?: No Do you have trouble with day-to-day activities such as bathing, preparing meals, shopping, managing finances, etc.?: No Are you currently unemployed and looking for a job?: No Are you interested in more education?: No Please select the resources that you would like help with: None Currently or been in a relationship where the following occur: I choose not to answer THRIVE Score: 2 BENJI-7 AMB Questionnaire BENJI-7 Date BENJI - 7 assessed: 08/07/25 Feeling nervous, anxious, or on edge: 2 = More than half the days Not being able to stop or control worryin = Not at all Worrying too much about different things: 0 = Not at all Trouble relaxin = Nearly every day Being so restless that it is hard to sit still: 1 = Several days Becoming easily annoyed or irritable: 1 = Several days Feeling afraid as if something awful might happen: 0 = Not at all Total BENJI-7 score (0-4 normal; 5-9 mild; 10-14 moderate; 15-21 severe): 7 Source: Developed by Drs. Dutch West, Mary Bullard, Sharan Do and colleagues, with an educational christine from [email or web address]. Physical exam (Primary Care) Vital Signs: Last Vital Signs Temp 97.5 F 08/07/25 16:05 Pulse 93 08/07/25 16:05 BP 140/90 H 08/07/25 16:05 Pulse Ox 98 08/07/25 16:05 Oxygen Delivery Method Room Air 08/07/25 16:05 General: Well-appearing, alert, oriented ?3, in no acute distress. Cardiovascular: RRR, S1-S2 appreciated, no murmurs, rubs or gallops. Respiratory: Lungs clear to auscultation bilaterally, no wheezes, rales or rhonchi. Abdomen: Soft, nontender, nondistended. Normoactive bowel sounds. BMI result Body Mass Index 28.5 Tobacco/Smoking Status: Tobacco use Status Tobacco use date assessed 08/07/25 08/07/25 16:09 Patient Tobacco Use Status Current someday Tobacco 08/07/25 16:09 Tobacco use type Cigar 08/07/25 16:09 e-Cigarette/Vaping Use Never Used 08/07/25 16:09 Thrive Assessment: Date of Thrive Assessment Date Thrive assessed 09/26/24 08/07/25 16:09 Currently or been in a relationship where the following occur: I choose not to answer Coding Level of Care Code Est Pt Level 4 (60533) Diagnoses Generalized anxiety disorder F41.1 Assessment & Plan Assessment & Plan (1) Generalized anxiety disorder: Code(s): F41.1 - Generalized anxiety disorder Category: Medical Plan: Patient was last seen on 06/22/2025 for worsening anxiety and depression symptoms. He was restarted on Vraylar 1.5 mg once daily at that time, and referred to psychiatry for further medication management. He did not schedule an appointment with psychiatrist as he did not feel the need to. He is currently seeing a family therapist. Tolerating medication well without side effects, reports he is feeling much better. Benji 7 score of 7 today consistent with mild anxiety. Patient requesting refill of medication, refill provided. Medications: Refilled cariprazine (Vraylar) 1.5 mg PO DAILY 30 caps 1RF F41.1 - Generalized anxiety disorder
[2025-08-07 16:05] VITALS: BP 140/90; PULSE 93; TEMP 36.4; O2SAT 98; BMI 28.5
--- OUTSIDE RECORDS SUMMARY | 2025-08-07 20:23 | XMS_ITS | Clinical Summary ---
Author Organization [facility] Address [address] [address] Phone Care Team Providers Care Account Classification Clerk Name Role Phone Pcp, Unknown Primary Care [...] Medical Devices Not on file Care Teams Account Classification Clerk Relationship Specialty Start Date End Date Pcp, Unknown PCP - General 11/22/22 Additional Source Comments The information contained in this document represents components of the legal health record. It is not the complete legal health record.[facility]
== END 2025-08-07 16:28 | disposition home or self-care (01) ==
LOC: HO.HMCH 15:35
PROVIDERS: PCP Internal Medicine; Visit Provider Student in an Organized Health Care Education/Training Program
DX: F41.1 Generalized anxiety disorder (principal)